=== PATIENT | female | born 1955 | race Caucasian/White ===

== ENCOUNTER → 2017-01-01 | Outpatient (CLI) | payer OTHER | LOC: FLAB 11:39 | PROVIDERS: ATTEND Internal Medicine | DX: Z01.818 Encounter for other preprocedural examination (principal); Z79.899 Other long term (current) drug therapy; M25.569 Pain in unspecified knee; M41.84 Other forms of scoliosis, thoracic region ==

== ENCOUNTER 2018-09-12 10:14 | Emergency (ER) | payer OTHER ==
[2018-09-12] MEDS ORDERED: NS 500 ML IV ONE (10:23)
[2018-09-12] MEDS ORDERED: METOPROLOL TARTRATE 5 MG/5 ML INJ ONE (10:24)
[2018-09-12] MEDS ORDERED: IOPAMIDOL (ISOVUE 370) 100 ML BTL IV ONE (10:29)
[2018-09-12] MEDS: METOPROLOL TARTRATE 5 MG/5 ML INJ IVP SCH ×3 (10:30→11:08)
--- NOTE | 2018-09-12 10:41 | EDPHY ---
H & P Time Seen by Provider: 09/12/18 10:25 HPI/ROS: CHIEF COMPLAINT: Racing heart, chest pain HISTORY OF PRESENT ILLNESS: Patient states she woke up about 730 this morning and noticed her heart racing. She states that it did not wake her up. She felt anxious and felt like she had "taken a double dose of caffeine". At the same time she had chest pain about 5/10 that she described as sharp and stabbing. The pain went through the chest to the back. Initially she thought that she had "slept wrong". However over the course of the morning symptoms got worse. She felt palpitations. The pain continued. She states she also felt quite anxious. She has never had anything like this before. Patient states that she was well yesterday other than having some blood that "dripped down" causing her to spit up a clot of blood yesterday evening. She did not otherwise have a bloody nose that she noticed. Patient does exercise daily. She states she gets on a treadmill and spends about 45 min walking briskly up ill until she [place]olaños 400 calories. She denies any recent shortness of breath, chest pain, exercise intolerance. She is a nonsmoker. Her cholesterol is "fine". She had a mother who had CHF no known coronary artery disease family history. REVIEW OF SYSTEMS: Constitutional: No fever, no chills. Eyes: No discharge. ENT: No sore throat. Nose bleed yesterday. Cardiovascular: Per HPI Respiratory: No cough, no shortness of breath. Gastrointestinal: No abdominal pain, no vomiting. Genitourinary: No dysuria. Musculoskeletal: Back pain present. No extremity complaints. No trauma. Skin: No rashes. Neurological: No headache. No vision changes. Baseline neuropathy. General Appearance: Alert, anxious appearing, hypertensive. Eyes: Pupils equal and round no pallor or injection. ENT, Mouth: Mucous membranes moist. Respiratory: There are no retractions, lungs are clear to auscultation. Cardiovascular: Regular rate and rhythm. No murmurs rubs or gallops. Femoral pulses strong and equal bilaterally. Gastrointestinal: Abdomen is soft and nontender, no masses, bowel sounds normal. Neurological: Awake, alert, cranial nerves intact, no focal neurologic deficits. Normal strength and sensation. Skin: Warm and dry, no rashes. Musculoskeletal: Neck is supple nontender. Extremities are symmetrical, full range of motion, no edema. Psychiatric: Patient is oriented X 3, there is no agitation. Medical/surgical history: Kidney stones, total knee replacement, breast implants, headaches. Social history: Nonsmoker. Constitutional: Initial Vital Signs Heart Rate 87 09/12/18 10:25 Respiratory Rate 20 09/12/18 10:25 Blood Pressure 126/109 H 09/12/18 10:25 O2 Sat (%) 97 09/12/18 10:25 O2 Delivery Mode Room Air Allergies/Adverse Reactions: codeine Allergy (Verified 09/12/18 10:36) tetracycline Allergy (Verified 09/12/18 10:36) Home Medications: Medication Instructions Recorded Acyclovir 09/12/18 Ambien 09/12/18 Propranolol HCl 09/12/18 Medical Decision Making - Diagnostics EKG Interpretation: EKG shows sinus rhythm with a rate of 86. Normal axis. Normal intervals. Some ST depression in the anterolateral leads. No ST elevation or other signs of acute CO. Impression nonspecific EKG. Imaging Results: Imaging Impressions Chest X-Ray 09/12/18 10:23 Impression: Mild airways disease. Clear lungs. No acute process. Abdomen CTA 09/12/18 10:24 Impression: 1. Normal aorta. No aortic dissection or aneurysm. 2. No evidence of thrombopulmonary embolic disease. 3. Mild airways disease. No pneumothorax or acute process. 4. No intraabdominal mass, lymphadenopathy or acute localizing inflammatory process. 5. Mild constipation. Findings discussed with Emergency Department physician, Aliza De Jesus MD, on 09/12/2018, 11:40. Chest/Thorax CTA 09/12/18 10:24 Impression: 1. Normal aorta. No aortic dissection or aneurysm. 2. No evidence of thrombopulmonary embolic disease. 3. Mild airways disease. No pneumothorax or acute process. 4. No intraabdominal mass, lymphadenopathy or acute localizing inflammatory process. 5. Mild constipation. Findings discussed with Emergency Department physician, Aliza De Jesus MD, on 09/12/2018, 11:40. Imaging: Discussed imaging studies w/ bilingual call center representative Radiologist ED Course/Re-evaluation: 10:30 am. re-evaluation after 5 mg of IV metoprolol. Blood pressure 122/80s. Patient still shaky and states sharp stabbing pain from chest to back. Differential Diagnosis: Differential diagnosis includes but is not limited to aortic dissection, acute coronary syndrome, pulmonary embolism, arrhythmia, anxiety. After evaluation including CT scan of the aorta patient without evidence of dissection, aneurysm , pulmonary embolism, pneumonia, other vascular abnormality. Patient is low risk on heart score and ruled out in the emergency department. Symptoms improved throughout her time here and back pain improved with ibuprofen. Suspect this is likely related to anxiety attack although given the dramatic nature of her presentation strongly recommended she follow up with her primary care physician as well as Cardiology in the next few days. Return precautions discussed in detail. Patient verbalizes understanding. Stable for discharge. - Data Points Laboratory Results: 09/12/18 09/12/18 09/12/18 13:32 10:31 10:29 POC Sodium 140 mEq/L mEq/L (135-145) POC Potassium 3.9 mEq/L mEq/L (3.3-5.0) POC Chloride 106.0 mEq/L mEq/L (97-110) POC Total CO2 24 mEq/L mEq/L (22-31) POC BUN 11 mg/dL mg/dL (7-23) POC Creatinine 0.7 mg/dL mg/dL (0.6-1.0) POC Glucose 133 mg/dL H mg/dL (70-100) POC Calcium 10.3 mg/dL mg/dL (8.5-10.4) POC Total Bilirubin 0.8 mg/dL mg/dL (0.1-1.4) POC AST 42 IU/L IU/L (14-46) POC ALT 21 IU/L IU/L (9-52) POC Alk Phosphatase 56 IU/L IU/L (38-126) POC Troponin I 0.00 ng/mL ng/mL 0.01 ng/mL ng/mL (0.00-0.08) (0.00-0.08) POC Total Protein 7.3 g/dL g/dL (6.3-8.2) POC Albumin 4.4 g/dL g/dL (3.5-5.0) Medications Given: Discontinued Medications Aspirin (Aspirin) 324 mg PO EDNOW ONE Stop: 09/12/18 12:07 Last Admin: 09/12/18 12:21 Dose: 324 mg Sodium Chloride (Ns) 500 mls @ 0 mls/hr IV EDNOW ONE; Wide Open PRN Reason: Protocol Stop: 09/12/18 10:24 Last Admin: 09/12/18 10:35 Dose: 500 mls Ibuprofen (Motrin) 600 mg PO EDNOW ONE Stop: 09/12/18 12:07 Last Admin: 09/12/18 12:21 Dose: 600 mg Metoprolol Tartrate (Lopressor Injection) 5 mg IVP Q5M GEORGE Stop: 09/12/18 10:41 Last Admin: 09/12/18 11:08 Dose: 5 mg Point of Care Test Results: CBC CBC Collection Date 09/12/18 CBC Collection Time 10:25 WBC 6.34 RBC 4.62 HGB 14.4 HCT 43.1 PLT 223 Neut # 3.66 Neut 57.7 LYMPH # 1.94 LYMPH 30.6 MCV 93.3 Chemistry 09/12/18 09/12/18 09/12/18 13:32 10:31 10:29 POC Sodium 140 mEq/L mEq/L (135-145) POC Potassium 3.9 mEq/L mEq/L (3.3-5.0) POC Chloride 106.0 mEq/L mEq/L (97-110) POC Total CO2 24 mEq/L mEq/L (22-31) POC BUN 11 mg/dL mg/dL (7-23) POC Creatinine 0.7 mg/dL mg/dL (0.6-1.0) POC Glucose 133 mg/dL H mg/dL (70-100) POC Calcium 10.3 mg/dL mg/dL (8.5-10.4) POC Total Bilirubin 0.8 mg/dL mg/dL (0.1-1.4) POC AST 42 IU/L IU/L (14-46) POC ALT 21 IU/L IU/L (9-52) POC Alk Phosphatase 56 IU/L IU/L (38-126) POC Troponin I 0.00 ng/mL ng/mL 0.01 ng/mL ng/mL (0.00-0.08) (0.00-0.08) POC Total Protein 7.3 g/dL g/dL (6.3-8.2) POC Albumin 4.4 g/dL g/dL (3.5-5.0) Departure - Departure Clinical Impression: Palpitations Hypertension Qualifiers: Hypertension type: unspecified Qualified Code(s): I10 - Essential (primary) hypertension Condition: Good Instructions: Chest Pain (ED), Heart Palpitations (ED) Additional Instructions: You should follow up with her primary care physician without fail in the next week. I also recommend that you consider calling Cardiology for appointment and follow-up. Return to the emergency department if you develop any new or concerning symptoms. Referrals: NONE *PRIMARY CARE P,. [Primary Care Provider] - As per Instructions Beronica Landa MD [Medical Doctor] - As per Instructions Steffanie Aggarwal MD [Medical Doctor] - As per Instructions
[2018-09-12] MEDS ORDERED: ASPIRIN 81 MG CHEWABLE TAB PO ONE (12:06)
[2018-09-12] MEDS ORDERED: IBUPROFEN 600 MG TAB PO ONE (12:06)
--- NOTE | 2018-09-12 18:12 | CPEKG ---
Test Reason : OPEN Blood Pressure : / mmHG Vent. Rate : 062 BPM Atrial Rate : 062 BPM P-R Int : 142 ms QRS Dur : 076 ms QT Int : 427 ms P-R-T Axes : 076 058 054 degrees QTc Int : 434 ms Sinus rhythm Confirmed by Aliza De Jesus ([id number]) on 09/12/2018 6:12:08 PM Referred By: Aliza De Jesus Confirmed By:Aliza De Jesus
--- NOTE | 2018-09-12 18:12 | CPEKG ---
Test Reason : OPEN Blood Pressure : / mmHG Vent. Rate : 086 BPM Atrial Rate : 085 BPM P-R Int : 137 ms QRS Dur : 075 ms QT Int : 372 ms P-R-T Axes : 078 060 046 degrees QTc Int : 445 ms Sinus rhythm Minimal ST depression, anterolateral leads Confirmed by Aliza De Jesus ([id number]) on 09/12/2018 6:12:09 PM Referred By: Aliza De Jesus Confirmed By:Aliza De Jesus
[2018-09-12 19:12] VITALS: BP 132/80
== END 2018-09-12 14:20 | disposition home or self-care (01) ==
LOC: CED 10:14
DX: R00.2 Palpitations (principal); R07.89 Other chest pain; I10 Essential (primary) hypertension
CPT/HCPCS: 71045-PO; 71275-PO; 74175-ER; 80053-ER; 84484-ER; 85025-QW-ER; 96374-ER; 99285-ER; Q9967